=== PATIENT | male | born 1960 | race Native Hawaiian/Other Pacific Islander ===

== ENCOUNTER 2020-01-13 13:10 | Emergency (ER) | payer MEDICARE ==
[2020-01-13 13:21] VITALS: BP 134/83
--- NOTE | 2020-01-13 14:43 | Emergency Department Report ---
Blank Doc - Documentation Documentation: 59-year-old male that presents with left elbow pain worsenign with redness. S saroj was dx with cellulitis and has been taking antibiotics with no relief. This initial assessment/diagnostic orders/clinical plan/treatment(s) is/are subject to change based on patient's health status, clinical progression and re- assessment by fellow clinical providers in the ED. Further treatment and workup at subsequent clinical providers discretion. Patient/guardians urged not to elope from the ED as their condition may be serious if not clinically assessed and managed. Initial orders include: 1- Patient sent to [facility] for further evaluation and treatment 2- xrays r/o osteomylitis
--- NOTE | 2020-01-13 15:12 | XRay Report ---
LEFT ELBOW 3 VIEW(S) INDICATION / CLINICAL INFORMATION: pain r/o osteomylitis COMPARISON: None available. FINDINGS: BONES / JOINT(S): No acute fracture or subluxation. No significant arthritis. SOFT TISSUES: Mild soft tissue swelling is seen along the posterior medial aspect of the elbow possib ly secondary to cellulitis. ADDITIONAL FINDINGS: No cortical destruction or soft tissue gas is seen to suggest osteomyelitis. Signer Name: Bryan Costello MD Signed: 01/13/2020 3:08 PM Workstation Name: [id number]
== END 2020-01-13 21:35 | disposition left against medical advice (07) ==
LOC: ED 13:10
DX: M25.522 Pain in left elbow (principal); Z53.21 Procedure and treatment not carried out due to patient leaving prior to being seen by health care provider

== ENCOUNTER 2020-01-14 09:11 | Emergency (ER) | payer MEDICARE ==
--- NOTE | 2020-01-14 13:22 | Emergency Department Report ---
ED General Adult HPI - General Chief complaint: Extremity Injury, Upper Stated complaint: LEFT ELBOW SWELLING Time Seen by Provider: 01/14/20 12:44 Source: patient Mode of arrival: Ambulatory Limitations: No Limitations - Related Data Previous Rx's Medication Instructions Recorded Last Taken Type Sitagliptin Phosphate [Januvia] 100 mg PO QDAY 30 Days #30 tablet 01/14/20 Unknown Rx Sulfamethoxazole/Trimethoprim 1 each PO BID 7 Days #14 tablet 01/14/20 Unknown Rx [Bactrim DS TAB] Allergies Allergy/AdvReac Type Severity Reaction Status Date / Time No Known Allergies Allergy Verified 01/14/20 09:26 ED Review of Systems ROS: Stated complaint: LEFT ELBOW SWELLING Other details as noted in HPI ED Past Medical Hx - Past Medical History Hx Hypertension: Yes Hx Diabetes: Yes Additional medical history: difficulty sleeping. - Surgical History Additional Surgical History: vascular surgery - Social History Smoking Status: Unknown if ever smoked Substance Use Type: None - Medications Home Medications: Home Medications Medication Instructions Recorded Confirmed Last Taken Type Sitagliptin Phosphate [Januvia] 100 mg PO QDAY 30 Days #30 tablet 01/14/20 Unknown Rx Sulfamethoxazole/Trimethoprim 1 each PO BID 7 Days #14 tablet 01/14/20 Unknown Rx [Bactrim DS TAB] ED Physical Exam - General Limitations: No Limitations Critical care attestation.: If time is entered above; I have spent that time in minutes in the direct care of this critically ill patient, excluding procedure time. ED Disposition Clinical Impression: Cellulitis of left elbow Disposition: DC-01 TO HOME OR SELFCARE Is pt being admited?: No Condition: Stable Instructions: Cellulitis (ED) Prescriptions: Sulfamethoxazole/Trimethoprim [Bactrim DS TAB] 1 each PO BID 7 Days #14 tablet Sitagliptin Phosphate [Januvia] 100 mg PO QDAY 30 Days #30 tablet Referrals: LUIS SCHNEIDER MD [Staff Physician] - 3-5 Days Print Language: [place]
[2020-01-14 13:59] LABS: Hematocrit 42.5 % (35.5-45.6); Hemoglobin 14.1 gm/dl (11.8-15.2); Mean Corpuscular HGB Conc 33 % (32-34); Mean Corpuscular Volume 89 fl (84-94); Platelet Count 269 K/mm3 (140-440); Red Blood Count 4.79 M/mm3 (3.65-5.03); Red Cell Distribution Width 13.4 % (13.2-15.2)
[2020-01-14 18:32] LABS: Basophils % (Manual) 0 % (0.0-1.8); Platelet Estimate Consistent w Auto; RBC Morphology Normal; Total Cells Counted 100
== END 2020-01-14 13:51 | disposition home or self-care (01) ==
LOC: ED 09:11
DX: L03.114 Cellulitis of left upper limb (principal); I10 Essential (primary) hypertension; E11.9 Type 2 diabetes mellitus without complications
CPT/HCPCS: 36415; 85007; 85025; 99283